=== PATIENT | male | born 1980 | race Caucasian/White ===

== ENCOUNTER 2018-12-19 11:22 | Emergency (ER) | payer OTHER, SELFPAY ==
[2018-12-19 11:29] VITALS: BP 132/85; PULSE 102; RESP 18; TEMP 36.9; O2SAT 97
--- NOTE | 2018-12-19 11:54 | DI.US.S_ITS ---
PROCEDURE: US PERIPH VENOUS LOW EXTREM RT INDICATIONS: LEFT KNEE PAIN 1 WEEK POST OP TECHNIQUE: Real-time imaging, as well as color and pulse Doppler interrogation, were performed of the lower extremity deep veins from the inguinal ligament to the popliteal fossa. COMPARISON: None. FINDINGS: The common femoral, femoral and popliteal veins are normally compressible, and free of intraluminal thrombus. Color and pulse Doppler demonstrate normal phasic intraluminal flow. There is normal augmentation response to distal compression maneuver. IMPRESSION: Negative for deep venous thrombosis. Dictated by: Panchito Lakhani M.D. on 12/19/2018 at 11:32 Approved by: Panchito Lakhani M.D. on 12/19/2018 at 11:33
--- NOTE | 2018-12-19 13:32 | ED.LOWEXIN ---
HPI - Extremity Injury (Lower) <CALE Woodward - Last Filed: 12/19/18 23:59> General Chief Complaint: Extremity Injury, Lower Stated Complaint: Surgery last tuesday,right calf pain Time Seen by Provider: 12/19/18 13:04 Source: patient and family Mode of arrival: ambulatory Limitations: no limitations History of Present Illness HPI Narrative: 38-year-old male with a past medical history of traumatic brain injury, GERD, hypertension, and sleep apnea, presents to the emergency department after a laparoscopic exploration right knee surgery on 12/13/2018 complaining of calf pain for the past 3 days that is worse today. Pain is crampy in nature, 10/10, intermittent, worse with movement, stretching, and weight bearing; Pain is better with rest. Denies increased swelling, redness, numbness, joint pain, decreased sensation, nausea, vomiting, fevers, chills, chest pain, shortness of breath. Related Data Previous Rx's Medication Instructions Recorded hydroxyzine HCl 50 mg PO Q6H #20 tab 12/19/18 oxycodone-acetaminophen [Percocet] 1 tab PO Q4-6H PRN #10 tab 12/19/18 Allergies Allergy/AdvReac Type Severity Reaction Status Date / Time No Known Drug Allergies Allergy Verified 12/19/18 11:29 Review of Systems <CALE Woodward - Last Filed: 12/19/18 23:59> Constitutional Denies chills, Denies fever(s), Denies lethargy and Denies weakness ENT Ears, Nose, Mouth, and Throat: Denies change in voice and Denies sore throat Cardiovascular Denies chest pain, Denies irregular heart rhythm, Denies lightheadedness, Denies palpitations, Denies dyspnea, Denies dyspnea on exertion and Denies orthopnea Respiratory Denies cough, Denies dyspnea, Denies dyspnea on exertion and Denies wheezing Gastrointestinal Gastrointestinal: Denies abdominal pain, Denies change in bowel habits, Denies diarrhea, Denies nausea and Denies vomiting Genitourinary Denies hematuria, Denies flank pain, Denies urinary incontinence and Denies urinary urgency Musculoskeletal Reports muscle cramps, Denies stiffness and Denies tingling Integumentary/Breasts Denies pruritus, Denies erythema, Denies rash and Denies wounds Neurologic Denies confusion, Denies tingling and Denies weakness Psychiatric Denies anxiety, Denies confusion, Denies depression, Denies homicidal ideation and Denies suicidal ideation Endocrine Denies palpitations Hematologic/Lymphatic Denies easy bruising Allergic/Immunologic Denies wheezing PFSH <CALE Woodward - Last Filed: 12/19/18 23:59> Surgical History H/O right knee surgery (Acute) Social History Smoking Status: Never smoker Social History Smoking Status: Never smoker Exam <CALE Woodward - Last Filed: 12/19/18 23:59> Initial Vital Signs Initial Vital Signs: Vital Signs Temperature 98.4 F 12/19/18 11:29 Pulse Rate 102 H 12/19/18 11:29 Respiratory Rate 18 12/19/18 11:29 Blood Pressure 132/85 12/19/18 11:29 Pulse Oximetry 97 12/19/18 11:29 Const General: cooperative and well developed Nutritional Appearance: well nourished Orientation: alert, awake, oriented x3 and not confused Eyes General: appearance normal, both eyes and all related structures Eyelids: eyelids normal Conjunctivae: conjunctivae normal Sclera: sclerae normal Pupils: PERRL EOM: EOM intact bilaterally Neck Neck: normal visual inspection, trachea midline, No lymphadenopathy, No midline deformity and No JVD Lymphatic: No lymphedema Chest Chest: normal inspection of the chest Resp Effort & Inspection: normal respiratory effort, able to speak in complete sentences, no respiratory distress and no use of accessory muscles Auscultation: clear to auscultation bilaterally, no rales, no rhonchi and no wheezes Cardio Rate: regular rate Rhythm: regular rhythm Heart Sounds: no click, no gallops, no murmurs and no rubs Pulses: normal peripheral pulses GI Palpation: soft, No guarding and No tender Skin General: no rashes or lesions noted, No jaundice and No petechiae Neuro General: alert, oriented x3, gait normal and no focal motor deficits Speech: speech normal Extrem General: full ROM Right lower extremity: normal to inspection, full ROM and normal capillary refill Other: 1+ nonpitting edema in the right lower extremity, with calf tenderness on palpation and with movement as such. Full range of motion of foot, ankle, pressure range of motion with stability to pain post surgery. Pedal pulses 2+ bilaterally, color equal bilaterally. No erythema or induration. Psych Appearance: well kempt Mental Status: mental status grossly normal Attitude: cooperative Thought Content: normal and suicidality Judgment: judgment good <Sue Storey MD - Last Filed: 12/21/18 12:10> Initial Vital Signs Initial Vital Signs: Vital Signs Temperature 98.4 F 12/19/18 11:29 Pulse Rate 102 H 12/19/18 11:29 Respiratory Rate 18 12/19/18 11:29 Blood Pressure 132/85 12/19/18 11:29 Pulse Oximetry 97 12/19/18 11:29 Course <CALE Woodward - Last Filed: 12/19/18 23:59> Course Narrative: Patient given Jose R wrap to reduce swelling in legs. Orders Ordered: ED Orders 12/19/18 11:54 US periph venous low extrem rt Stat Consultations Consultation #1: Staffed patient with Dr. Storey who agrees with plan of care. Vital Signs - 8 hr 12/19/18 11:29 Temperature 98.4 F Pulse Rate 102 H Respiratory Rate 18 Blood Pressure 132/85 Pulse Oximetry 97 <Sue Storey MD - Last Filed: 12/21/18 12:10> Orders Ordered: ED Orders 12/19/18 11:54 US periph venous low extrem rt Stat Vital Signs - 8 hr 12/19/18 11:29 Temperature 98.4 F Pulse Rate 102 H Respiratory Rate 18 Blood Pressure 132/85 Pulse Oximetry 97 MDM - Extremity Injury (Lower) <CALE Woodward - Last Filed: 12/19/18 23:59> Medical Records Attestation: I reviewed the patient's medical records. Lab Data Attestation: I reviewed the patient's lab results. Imaging Data Venous US: Radiologist's impression: ROSARIO Dee [id number] Ultrasound Report Signed Patient: Yusuf Martinez Jr [facility]#: [id number] : 1980Acct:[id number] Age/Sex: 38 / MDate of Service: 12/19/18 Loc: ED Accession Number: [id number] Procedure: US periph venous low extrem rt Ordering Provider: Sue Storey MD PROCEDURE: US PERIPH VENOUS LOW EXTREM RT INDICATIONS: LEFT KNEE PAIN 1 WEEK POST OP TECHNIQUE: Real-time imaging, as well as color and pulse Doppler interrogation, were performed of the lower extremity deep veins from the inguinal ligament to the popliteal fossa. COMPARISON: None. FINDINGS: The common femoral, femoral and popliteal veins are normally compressible, and free of intraluminal thrombus. Color and pulse Doppler demonstrate normal phasic intraluminal flow. There is normal augmentation response to distal compression maneuver. IMPRESSION: Negative for deep venous thrombosis. Dictated by: Panchito Lakhani M.D. on 12/19/2018 at 11:32 Approved by: Panchito Lakhani M.D. on 12/19/2018 at 11:33 [facility] Narrative Medical decision making narrative: I suspect the patient's symptoms are caused by muscle spasm related knee surgery. Low suspicion for DVT as ultrasound did not show acute findings, exam was negative. Low suspicion for septic joint due to negative exam and the lack of other systemic findings. Strict return precautions given. Hydroxyzine given to his muscle spasms, pain medication given for comfort. Discussed follow-up instructions with patient. Discharge Plan Departure Patient Disposition: Home Clinical Impression: Pain of right calf Discharge Date/Time: 12/19/18 13:44 Interventions: ED Discharge Assessment Last Done: 12/19/18 13:43 Instructions: DI for Deep Vein Thrombosis, DI for Muscle Spasm Activity Restrictions/Additional Instructions: Thank you for entrusting me with your care today. As discussed your ultrasound was negative for blood clots, I believe your pain is caused from a muscle spasm. I prescribed do a medication to help with the muscle spasms as well as some pain medication. Use heat, gentle stretches, and gentle exercises to reduce the spasms. Please follow up with their surgeon as directed. I have also attached information concerning blood clots, if you develop increased redness, a hard induration, or discoloration of the limb please return to the emergency department. Please do not drive with these medications. Prescriptions: New hydroxyzine HCl 50 mg tablet 50 mg PO Q6H Qty: 20 RF: 0 oxycodone-acetaminophen [Percocet] 5-325 mg tablet 1 tab PO Q4-6H PRN (Reason: pain) Qty: 10 RF: 0
[2018-12-19 13:35] VITALS: BP 120/68; PULSE 83; RESP 14; O2SAT 98
--- NOTE | 2018-12-19 13:35 | ED_ITS ---
HPI - Extremity Injury (Lower) <CALE Woodward - Last Filed: 12/19/18 23:59> General Chief Complaint: Extremity Injury, Lower Stated Complaint: Surgery last tuesday,right calf pain Time Seen by Provider: 12/19/18 13:04 Source: patient and family Mode of arrival: ambulatory Limitations: no limitations History of Present Illness HPI Narrative: 38-year-old male with a past medical history of traumatic brain injury, GERD, hypertension, and sleep apnea, presents to the emergency department after a laparoscopic exploration right knee surgery on 12/13/2018 complaining of calf pain for the past 3 days that is worse today. Pain is crampy in nature, 10/10, intermittent, worse with movement, stretching, and weight bearing; Pain is better with rest. Denies increased swelling, redness, n umbness, joint pain, decreased sensation, nausea, vomiting, fevers, chills, chest pain, shortness of breath. Related Data Previous Rx's Medication Instructions Recorded hydroxyzine HCl 50 mg PO Q6H #20 tab 12/19/18 oxycodone-acetaminophen [Percocet] 1 tab PO Q4-6H PRN #10 tab 12/19/18 Allergies Allergy/AdvReac Type Severity Reaction Status Date / Time No Known Drug Allergies Allergy Verified 12/19/18 11:29 Review of Systems <CALE Woodward - Last Filed: 12/19/18 23:59> Constitutional Denies chills, Denies fever(s), Denies lethargy and Denies weakness ENT Ears, Nose, Mouth, and Throat: Denies change in voice and Denies sore throat Cardiovascular Denies chest pain, Denies irregular heart rhythm, Denies lightheadedness, Denies palpitations, Denies dyspnea, Denies dyspnea on exertion and Denies orthopnea Respiratory Denies cough, Denies dyspnea, Denies dyspnea on exertion and Denies wheezing Gastrointestinal Gastrointestinal: Denies abdominal pain, Denies change in bowel habits, Denies diarrhea, Denies nausea and Denies vomiting Genitourinary Denies hematuria, Denies flank pain, Denies urinary incontinence and Denies urinary urgency Musculoskeletal Reports muscle cramps, Denies stiffness and Denies tingling Integumentary/Breasts Denies pruritus, Denies erythema, Denies rash and Denies wounds Neurologic Denies confusion, Denies tingling and Denies weakness Psychiatric Denies anxiety, Denies confusion, Denies depression, Denies homicidal ideation and Denies suicidal ideation Endocrine Denies palpitations Hematologic/Lymphatic Denies easy bruising Allergic/Immunologic Denies wheezing PFSH <CALE Woodward - Last Filed: 12/19/18 23:59> Surgical History H/O right knee surgery (Acute) Social History Smoking Status: Never smoker Social History Smoking Status: Never smoker Exam <CALE Woodward - Last Filed: 12/19/18 23:59> Initial Vital Signs Initial Vital Signs: Vital Signs Temperature 98.4 F 12/19/18 11:29 Pulse Rate 102 H 12/19/18 11:29 Respiratory Rate 18 12/19/18 11:29 Blood Pressure 132/85 12/19/18 11:29 Pulse Oximetry 97 12/19/18 11:29 Const General: cooperative and well developed Nutritional Appearance: well nourished Orientation: alert, awake, oriented x3 and not confused Eyes General: appearance normal, both eyes and all related structures Eyelids: eyelids normal Conjunctivae: conjunctivae normal Sclera: sclerae normal Pupils: PERRL EOM: EOM intact bilaterally Neck Neck: normal visual inspection, trachea midline, No lymphadenopathy, No midline deformity and No JVD Lymphatic: No lymphedema Chest Chest: normal inspection of the chest Resp Effort & Inspection: normal respiratory effort, able to speak in complete sentences, no respiratory distress and no use of accessory muscles Auscultation: clear to auscultation bilaterally, no rales, no rhonchi and no wheezes Cardio Rate: regular rate Rhythm: regular rhythm Heart Sounds: no click, no gallops, no murmurs and no rubs Pulses: normal peripheral pulses GI Palpation: soft, No guarding and No tender Skin General: no rashes or lesions noted, No jaundice and No petechiae Neuro General: alert, oriented x3, gait normal and no focal motor deficits Speech: speech normal Extrem General: full ROM Right lower extremity: normal to inspection, full ROM and normal capillary refill Other: 1+ nonpitting edema in the right lower extremity, with calf tenderness on palpation and with movement as such. Full range of motion of foot, ankle, pressure range of motion with stability to pain post surgery. Pedal pulses 2+ bilaterally, color equal bilaterally. No erythema or induration. Psych Appearance: well kempt Mental Status: mental status grossly normal Attitude: cooperative Thought Content: normal and suicidality Judgment: judgment good <Sue Storey MD - Last Filed: 12/21/18 12:10> Initial Vital Signs Initial Vital Signs: Vital Signs Temperature 98.4 F 12/19/18 11:29 Pulse Rate 102 H 12/19/18 11:29 Respiratory Rate 18 12/19/18 11:29 Blood Pressure 132/85 12/19/18 11:29 Pulse Oximetry 97 12/19/18 11:29 Course <CALE Woodward - Last Filed: 12/19/18 23:59> Course Narrative: Patient given Jose R wrap to reduce swelling in legs. Orders Ordered: ED Orders 12/19/18 11:54 US periph venous low extrem rt Stat Consultations Consultation #1: Staffed patient with Dr. Storey who agrees with plan of care. Vital Signs - 8 hr 12/19/18 11:29 Temperature 98.4 F Pulse Rate 102 H Respiratory Rate 18 Blood Pressure 132/85 Pulse Oximetry 97 <Sue Storey MD - Last Filed: 12/21/18 12:10> Orders Ordered: ED Orders 12/19/18 11:54 US periph venous low extrem rt Stat Vital Signs - 8 hr 12/19/18 11:29 Temperature 98.4 F Pulse Rate 102 H Respiratory Rate 18 Blood Pressure 132/85 Pulse Oximetry 97 MDM - Extremity Injury (Lower) <CALE Woodward - Last Filed: 12/19/18 23:59> Medical Records Attestation: I reviewed the patient's medical records. Lab Data Attestation: I reviewed the patient's lab results. Imaging Data Venous US: Radiologist's impression: ROSARIO Dee [id number] Ultrasound Report Signed Patient: Yusuf Martinez Jr [facility]#: [id number] : 1980Acct:[id number] Age/Sex: 38 / MDate of Service: 12/19/18 Loc: ED Accession Number: [id number] Procedure: US periph venous low extrem rt Ordering Provider: Sue Storey MD PROCEDURE: US PERIP VENOUS LOW EXTREM RT INDICATIONS: LEFT KNEE PAIN 1 WEEK POST OP TECHNIQUE: Real-time imaging, as well as color and pulse Doppler interrogation, were performed of the lower extremity deep veins from the inguinal ligament to the popliteal fossa. COMPARISON: None. FINDINGS: The common femoral, femoral and popliteal veins are normally compressible, and free of intraluminal thrombus. Color and pulse Doppler demonstrate normal phasic intraluminal flow. There is normal augmentation response to distal compression maneuver. IMPRESSION: Negative for deep venous thrombosis. Dictated by: Panchito Lakhani M.D. on 12/19/2018 at 11:32 Approved by: Panchito Lakhani M.D. on 12/19/2018 at 11:33 [facility] Narrative Medical decision making narrative: I suspect the patient's symptoms are caused by muscle spasm related knee surgery. Low suspicion for DVT as ultrasound did not show acute findings, exam was negative. Low suspicion for septic joint due to negative exam and the lack of other systemic findings. Strict return precautions given. Hydroxyzine given to his muscle spasms, pain medication given for comfort. Discussed follow-up instructions with patient. Discharge Plan Departure Patient Disposition: Home Clinical Impression: Pain of right calf Discharge Date/Time: 12/19/18 13:44 Interventions: ED Discharge Assessment Last Done: 12/19/18 13:43 Instructions: DI for Deep Vein Thrombosis, DI for Muscle Spasm Activity Restrictions/Additional Instructions: Thank you for entrusting me with your care today. As discussed your ultrasound was negative for blood clots, I believe your pain is caused from a muscle spasm. I prescribed do a medication to help with the muscle spasms as well as some pain medication. Use heat, gentle stretches, and gentle exercises to reduce the spasms. Please follow up with their surgeon as directed. I have also attached information concerning blood clots, if you develop increased redness, a hard induration, or discoloration of the limb please return to the emergency department. Please do not drive with these medications. Prescriptions: New hydroxyzine HCl 50 mg tablet 50 mg PO Q6H Qty: 20 RF: 0 oxycodone-acetaminophen [Percocet] 5-325 mg tablet 1 tab PO Q4-6H PRN (Reason: pain) Qty: 10 RF: 0
== END 2018-12-19 13:44 | disposition home or self-care (01) ==
PROVIDERS: Emergency Provider Nurse Practitioner
DX: M79.661 Pain in right lower leg (principal); Z98.890 Other specified postprocedural states
CPT/HCPCS: 93971; 99282; 99283

== ENCOUNTER 2019-04-03 14:34 | Emergency (ER) | payer OTHER, SELFPAY ==
[2019-04-03 14:37] VITALS: BP 123/81; PULSE 90; RESP 16; TEMP 36.9; O2SAT 97
--- NOTE | 2019-04-03 15:00 | PC.NURSE ---
Pt reports twisting motion of R knee and pain. Multiple procedures done to R knee in the past. [facility] advised [facility] come [facility]. took percocets he had at home which helped but he now has no more.
--- NOTE | 2019-04-03 15:06 | ED.LOWEXIN ---
HPI - Extremity Injury (Lower) <DARLENE EllisP - Last Filed: 04/04/19 01:34> General Chief Complaint: Extremity Injury, Upper Stated Complaint: r knee pain Time Seen by Provider: 04/03/19 14:53 Source: patient Mode of arrival: other (using crutches) Limitations: no limitations History of Present Illness HPI Narrative: This is a 39-year-old male, nonsmoker, presents with family with chief complain of right knee pain. He states pain is all over but more so on anterior superior to patella. Patient reports he had injured right knee 9 years ago and had recently arthroscopic surgery in November this year. Patient reports he almost fell last night on a stairs to steps above the ground after left heel got caught on a step. He is not sure what the mechanism was during this but he might have twisted his right knee during this. Patient reports any little movement and bearing weight cause excruciating pain. He denies tingling/numbness/weakness to right foot. He reports occasional right calf discomfort which is not a change from previously. He denies no other injuries sustained during this. Related Data Previous Rx's Medication Instructions Recorded hydroxyzine HCl 50 mg PO Q6H #20 tab 12/19/18 oxycodone-acetaminophen [Percocet] 1 tab PO Q4-6H PRN #10 tab 12/19/18 oxycodone-acetaminophen [Percocet] 1 tab PO Q6H PRN #7 tab 04/03/19 Allergies Allergy/AdvReac Type Severity Reaction Status Date / Time No Known Drug Allergies Allergy Verified 12/19/18 11:29 Review of Systems <DARLENE EllisP - Last Filed: 04/04/19 01:34> Review of Systems Narrative: General: Denies fever, chills, fatigue, malaise, sweats. HEENT: Denies sinus pain, ear pain, sore throat, difficulty swallowing, dizziness. Respiratory: Denies dyspnea, cough, wheezing, hemoptysis, sputum. Cardiovascular: Denies chest pain, palpitations, orthopnea, edema. Gastrointestinal: Denies nausea, vomiting, abdominal pain, diarrhea, constipation, melena. : Denies dysuria, frequency, incontinence, hematuria, urinary retention. Musculoskeletal: See HPI Skin: Denies rash, skin lesions, or other. Neurologic: Denies weakness, headache, numbness, change in speech, confusion, seizures, incoordination. Psychiatric: No concerning psychosocial issues. 12-point review of systems is negative except for those stated above. PFSH <CALE Ellis - Last Filed: 04/04/19 01:34> Medical History Knee pain (Acute) Surgical History H/O right knee surgery (Acute) Social History Smoking Status: Never smoker Social History Smoking Status: Never smoker Exam <CALE Ellis - Last Filed: 04/04/19 01:34> Narrative Exam Narrative: GEN: Alert, oriented x 3, well appearing and nourished, and in no acute distress. Head: Normal cephalic, atraumatic. No scalp or temporal tenderness, palpable mass or rash. EYES: Pupils are equal, round, and reactive to light and accommodation. Extraocular muscles are intact bilaterally. There is no subconjunctival hemorrhage, exudate and sclera non-icteric. ENT: Bilateral auditory canals and tympanic membranes clear. Hearing grossly intact. Nose without bleeding, purulent discharge or deviation. Facial sinuses nontender to palpate. Mucous membrane moist, no mucosal lesion. Throat without erythema, tonsillar hypertrophy or exudate. Uvula in midline, airway patent. Neck: Trachea in midline. No JVD, non-tender without lymphadenopathy. No masses or thyroid megaly. Supple, non-tender and no meningeal signs. CARDIAC: Normal regular rate and rhythm without murmurs, gallops, or rubs. No chest wall tenderness. No peripheral edema, cyanosis or pallor. Capillary refill is less than 2 seconds. RESPIRATORY: Lungs are cleat to auscultate bilaterally. No cough, wheezes, rales, or rhonchi. No stridor, respiratory distress, increase work of breathing, or accessary muscle used. ABD: Abdomen soft, nontender and non-distended. No guarding or rebound tenderness to palpate. Bowel sounds are normal in all 4 quadrants. There is no palpable masses or organomegaly. SKIN: Warm, dry, normal color for patient. No erythema, lesions or rash over visible areas. BACK: Nontender without deformity or crepitance. No flank tenderness. NEUROLOGICAL: Alert and oriented to place, time and person. Sensation and motor function intact bilaterally. No facial droops, dysphasia. PSYCHIATRIC: Good judgement and reason, without hallucinations, abnormal affect or abnormal behaviors during the examination. Patient is not suicidal. Initial Vital Signs Initial Vital Signs: Vital Signs Temperature 98.4 F 04/03/19 14:37 Pulse Rate 90 04/03/19 14:37 Respiratory Rate 16 04/03/19 14:37 Blood Pressure 123/81 04/03/19 14:37 Pulse Oximetry 97 04/03/19 14:37 Extrem Right upper extremity: normal to inspection and full ROM Left upper extremity: normal to inspection and full ROM Right lower extremity: knee Details: normal to inspection, tenderness and abnormal ROM Details: pain with active ROM during, pain with passive ROM during, unable to extend lower leg actively and with range as follows (very limited due to pain); no swelling, ankle Details: normal to inspection and normal ROM and foot Details: normal capillary refill, normal to inspection, toes with normal ROM, no edema and vascular exam Details: dorsalis pedis pulse present; no unusual warmth Left lower extremity: normal to inspection, full ROM and normal capillary refill <Naveed Ledezma DO - Last Filed: 04/11/19 19:13> Initial Vital Signs Initial Vital Signs: Vital Signs Temperature 98.4 F 04/03/19 14:37 Pulse Rate 90 04/03/19 14:37 Respiratory Rate 16 04/03/19 14:37 Blood Pressure 123/81 04/03/19 14:37 Pulse Oximetry 97 04/03/19 14:37 Procedures <CALE Ellis Last Filed: 04/04/19 01:34> Orthopedic Splinting/Casting Injury #1: Side: right Upper Extremity Immobilizer: Jose R wrap Lower Extremity Injury Location: knee Post splinting neuro exam: intact Post splinting vascular exam: intact Placed by: Nursing Additional Comments: The patient has own crutches Course <CALE Ellis Last Filed: 04/04/19 01:34> Orders Ordered: Discontinued Medications Hydrocodone Bitart/Acetaminophen ([place] 5/325) 1 tab PO NOW ONE Stop: 04/03/19 15:06 Last Admin: 04/03/19 15:35 Dose: 1 tab Documented by: BARBARA Ibuprofen (Advil) 800 mg PO NOW ONE Stop: 04/03/19 15:06 Last Admin: 04/03/19 15:35 Dose: 800 mg Documented by: BARBARA Vital Signs Vital signs: Vital Signs - 8 hr 04/03/19 14:37 Temperature 98.4 F Pulse Rate 90 Respiratory Rate 16 Blood Pressure 123/81 Pulse Oximetry 97 <Naveed Ledezma DO - Last Filed: 04/11/19 19:13> Orders Ordered: Discontinued Medications Hydrocodone Bitart/Acetaminophen ([place] 5/325) 1 tab PO NOW ONE Stop: 04/03/19 15:06 Last Admin: 04/03/19 15:35 Dose: 1 tab Documented by: BARBARA Ibuprofen (Advil) 800 mg PO NOW ONE Stop: 04/03/19 15:06 Last Admin: 04/03/19 15:35 Dose: 800 mg Documented by: BARBARA Vital Signs Vital signs: Vital Signs - 8 hr 04/03/19 14:37 Temperature 98.4 F Pulse Rate 90 Respiratory Rate 16 Blood Pressure 123/81 Pulse Oximetry 97 MDM - Extremity Injury (Lower) <CALE Ellis - Last Filed: 04/04/19 01:34> Differential Diagnosis Differential diagnosis: Likely ankle sprain and strain and acute internal derangement of knee Medical Records Attestation: I reviewed the patient's medical records. Imaging Data XR-Knee RT: Radiologist's impression: [address] [address] XRay Report Signed Patient: Yusuf Martinez Jr [facility]#: [id number] : 1980Acct:[id number] Age/Sex: 39 / MDate of Service: 04/03/19 Loc: ED Accession Number: [id number] Procedure: XR knee RT 3V Ordering Provider: Andreas Schwartz PROCEDURE: XR KNEE RT 3V INDICATIONS: R knee pain, anterior all over TECHNIQUE: 3 views of the knee were acquired. COMPARISON: None. FINDINGS: Bones: No fractures or dislocations. No suspicious bony lesions. Soft tissues: No joint effusion. No suspicious soft tissue calcifications. IMPRESSION: Normal for age, source of current persistent pain persistent pain symptoms is not seen. Dictated by: Moustapha Lee M.D. on 04/03/2019 at 15:37 Approved by: Moustapha Lee M.D. on 04/03/2019 at 15:37 [facility] Narrative Medical decision making narrative: This patient came in with right knee pain after he jumped down to staff on a stairs try to avoid fall last night. Patient was unable to recall the exact mechanism of injury. Patient had arthroscopic right knee surgery this November at [facility] from previous injury 9 years ago. Patient's physical exam without obvious deformity, edema, redness. Patient reports significant pain with small movements including flexion, extension, anterior and posterior drawer test. Patient had intact neurovascular function. Right knee x-ray shows no acute findings such as fracture, deformity, effusion. Patient's was medicated with [place] in ED for pain. Knee immobilizer was offered to patient but patient prefers Jose R wrap at this time. Patient has his own set of crutches when he came in to ED. Return precautions were discussed with the patient and patient advised to follow up with [facility] orthopedist and his primary care physician. Pain medication has been provided for home use for severe pain otherwise patient advised to use [id number] Tylenol and or Motrin and RICE therapy for pain, swelling, inflammation. Patient agrees with treatment plan and no further questions were expressed. Copy of x-ray CT provided for patient to follow up with [facility]. Discharge Plan Departure Patient Disposition: Home Clinical Impression: Sprain of right knee Qualifiers: Encounter type: initial encounter Involved ligament of knee: unspecified ligament Qualified Code(s): S83.91XA - Sprain of unspecified site of right knee, initial encounter Discharge Date/Time: 04/03/19 16:16 Instructions: DI for Knee Sprain Activity Restrictions/Additional Instructions: You have been diagnosed with [knee sprain and pain. According to x-ray test, there is no acute findings such as dislocation, or joint effusion.]. What to do: *Take your medications as directed. You can take [id number] Tylenol and or Motrin as needed for pain and inflammation. You can also use ice pack for next couple of days and elevate your knee. Use Jose R wrap that has been provided at your request instead of knee immobilizer for splinting effect. Oxycodone/Tylenol may cause drowsiness so please to not drink alcohol, drive, or operate any heavy equipment. *Follow up with your primary care provider and orthopedist at the [facility] in 2-3 days, call for an appointment. Let them know you were seen in the ED and that we asked you to be seen in follow up. *Return to ED if you have any new, worsening, or concerning symptoms, such as [tingling numbness or weakness to lower limb, severe pain, chest pain, breathing difficulty, dizziness, or any acute concerns]. Prescriptions: New oxycodone-acetaminophen [Percocet] 5-325 mg tablet 1 tab PO Q6H PRN (Reason: pain) Qty: 7 RF: 0 No Action hydroxyzine HCl 50 mg tablet 50 mg PO Q6H Qty: 20 RF: 0 oxycodone-acetaminophen [Percocet] 5-325 mg tablet 1 tab PO Q4-6H PRN (Reason: pain) Qty: 10 RF: 0 Referrals: [facility] ([facility] [Outside] <Naveed Ledezma DO - Last Filed: 04/11/19 19:13> Sign Out Provider Sign Out Attestation: I was available for consultation during this patient's emergency department encounter
[2019-04-03] MEDS: HYDROCODONE/ACET 5/325 TABLET 1 TAB PO (15:35)
[2019-04-03] MEDS: IBUPROFEN 400 MG TABLET 800 MG PO (15:35)
[2019-04-03 16:09] VITALS: BP 141/85; PULSE 90; RESP 18; O2SAT 100
== END 2019-04-03 16:16 | disposition home or self-care (01) ==
PROVIDERS: Emergency Provider Nurse Practitioner Family
DX: S83.91XA Sprain of unspecified site of right knee, initial encounter (principal); W18.43XA Slipping, tripping and stumbling without falling due to stepping from one level to another, initial encounter
CPT/HCPCS: 73562; 99282; 99283

== ENCOUNTER → 2019-06-07 16:43 | Outpatient (CLI) | payer OTHER, SELFPAY ==
--- NOTE | 2019-06-07 | DI.MRI.S_ITS ---
PROCEDURE: MR LUMBAR SPINE WO CON INDICATIONS: LOW BACK PAIN. LEFT THIGH TECHNIQUE: Noncontrast sagittal T1 spin echo and T2 fast echo, sagittal STIR, axial T1 and T2 fast spin echo through the lumbar spine. In cases with scoliosis, additional coronal T2 fast spin echo may be performed. COMPARISON: None. FINDINGS: Image quality: Excellent. Alignment and Curvature: There is normal bony alignment. Bone Marrow: Marrow is of normal overall signal. No acute vertebral body compression fractures. Spinal Cord: Conus medullaris terminates at the L1 level. Visualized cord demonstrates normal signal and size. Paraspinous Soft Tissues: No paravertebral masses. L1-L2: Normal appearance. L2-L3: Normal appearance. L3-L4: Normal appearance. L4-L5: Normal appearance. L5-S1: Loss of disc signal and height. Mild, diffuse disc bulge. Moderate-sized right central disc extrusion. Extruded disc material impinges upon and compresses the traversing right S1 nerve root. The no central stenosis. Mild bilateral neural foraminal narrowing. IMPRESSION: 1. Moderate-sized L5-S1 right central disc extrusion which compresses the right S1 nerve root. 2. Mild L5-S1 degenerative disc disease. 3. No central stenosis. 4. Mild bilateral L5-S1 neural foraminal narrowing. Dictated by: Cecile Gregory MD, PhD on 06/07/2019 at 19:14 Approved by: Cecile Gregory MD, PhD on 06/07/2019 at 19:16
== END ==
PROVIDERS: Visit Provider Physical Medicine & Rehabilitation
DX: M51.27 Other intervertebral disc displacement, lumbosacral region (principal); M51.37 Other intervertebral disc degeneration, lumbosacral region; M48.07 Spinal stenosis, lumbosacral region
CPT/HCPCS: 72148

== ENCOUNTER 2019-08-31 17:13 | Emergency (ER) | payer OTHER, SELFPAY ==
[2019-08-31 17:33] VITALS: BP 124/72; PULSE 111; RESP 18; TEMP 36.8; O2SAT 96
[2019-08-31] MEDS: OXYCODONE/ACETAMINOPHEN 5/325 TABLET 1 TAB PO (19:57)
--- NOTE | 2019-08-31 20:07 | ED_ITS ---
HPI - Male Genitourinary <Andreas BellaCALE Barrios - Last Filed: 08/31/19 23:47> General Chief complaint: Urogenital-Male Stated complaint: post surgery today, left hand tingling now Time Seen by Provider: 08/31/19 19:31 Source: patient Mode of arrival: Ambulatory Limitations: no limitations History of Present Illness HPI Narrative: This is a 39-year-old male, nonsmoker, who presents to ED with spouse and son with chief complain of numbness to his left 1st through 3rd fingers that he noticed at PACU stay. Patient had vasectomy reversal surgery today by [facility] today. Patient was under general anesthesia which the surgery was started at 7:30 a.m. till 11 and discharged to home at 1:00 a.m. from the hospital today. Patient called nurse line to discuss his symptoms on finger numbness, he was advised to go to ED immediately. Patient also states he has increasing bleeding and discomfort on surgical site and had not taken any pain medications since he was discharged to home. Patient reports frontal headache but denies vision change, speech difficulty or limb weakness. Patient has a history of frequent and severe kidney stones, , ADD , PTSD and NGA and takes HCTZ, allopurinol, potassium citrate for kidney stone and has been managed well. Related Data Allergies Allergy/AdvReac Type Severity Reaction Status Date / Time No Known Drug Allergies Allergy Verified 12/19/18 11:29 Review of Systems <Andreas RosetteCALE smith - Last Filed: 08/31/19 23:47> Review of Systems Narrative: General: Denies fever, chills, fatigue, malaise, sweats. HEENT: Denies sinus pain, ear pain, sore throat, difficulty swallowing, dizziness. Respiratory: Denies dyspnea, cough, wheezing, hemoptysis, sputum. Cardiovascular: Denies chest pain, palpitations, orthopnea, edema. Gastrointestinal: Denies nausea, vomiting, abdominal pain, diarrhea, constipation, melena. : Reports discomfort in scrotal/tescicular region and bleeding. Denies dysuria, frequency, incontinence, hematuria, urinary retention. Musculoskeletal: Denies weakness, joint pain or bony pain. Skin: Denies rash, skin lesions, or other. Neurologic: Denies weakness, (+) headache, (+) numbness on left hand 1st through 3rd fingers radiating to lower arm, change in speech, confusion, seizures, incoordination. Psychiatric: No concerning psychosocial issues. 12-point review of systems is negative except for those stated above. Patient History <CALE Ellis - Last Filed: 08/31/19 23:47> Medical History ADD (attention deficit disorder) (Acute) GERD (gastroesophageal reflux disease) (Acute) Kidney stones (Acute) Knee pain (Acute) NGA (obstructive sleep apnea) (Acute) PTSD (post-traumatic stress disorder) (Acute) Surgical History H/O right knee surgery (Acute) H/O shoulder surgery (Acute) Social History Smoking Status: Never smoker Smoking Status: Never smoker alcohol intake frequency: holidays/special occasions only Substance Use Type: does not use Exam <CALE Ellis - Last Filed: 08/31/19 23:47> Narrative Exam Narrative: GEN: Alert, oriented x 3, well appearing and nourished, and in acute distress but anxious. Head: Normal cephalic, atraumatic. No scalp or temporal tenderness, palpable mass or rash. EYES: Pupils are equal, round, and reactive to light and accommodation. Extraocular muscles are intact bilaterally. There is no subconjunctival hemorrhage, exudate and sclera non-icteric. ENT: Bilateral auditory canals and tympanic membranes clear. Hearing grossly intact. Nose without bleeding, purulent discharge, septal hematoma or deviation. Turbinate without erythema or swelling. Facial sinuses nontender to palpate. Mucous membrane moist, no mucosal lesion. Throat without erythema, tonsillar hypertrophy or exudate. Uvula in midline, airway patent. Neck: Trachea in midline. No JVD, non-tender without lymphadenopathy. No masses or thyroid megaly. Supple, non-tender and no meningeal signs. CARDIAC: Normal regular rate and rhythm without murmurs, gallops, or rubs. No chest wall tenderness. No peripheral edema, cyanosis or pallor. Capillary refill is less than 2 seconds. No carotid bruits. RESPIRATORY: Lungs are cleat to auscultate bilaterally. No cough, wheezes, rales, or rhonchi. No stridor, respiratory distress, increase work of breathing, or accessary muscle used. ABD: Abdomen soft, nontender and non-distended. No guarding or rebound tenderness to palpate. Bowel sounds are normal in all 4 quadrants. There is no palpable masses or organomegaly. EXT: Full painless ROM of all extremities with no loss of sensation, strength, effusion or edema. SKIN: Warm, dry, normal color for patient. No erythema, lesions or rash. BACK: Nontender without deformity or crepitance. No flank tenderness. NEUROLOGICAL: Alert and oriented to place, time and person. No facial droops, dysphasia. CN II-XII intact. Strength and sensation symmetric and intact throughout. Reflexes 2+ throughout. Cerebellar testing normal. Able distinguish sharp versus dull sensation accurately on left arm and hand PSYCHIATRIC: Good judgement and reason, without hallucinations, abnormal affect or abnormal behaviors during the examination. Initial Vital Signs Initial Vital Signs: Vital Signs Temperature 98.2 F 08/31/19 17:33 Pulse Rate 111 H 08/31/19 17:33 Respiratory Rate 18 08/31/19 17:33 Blood Pressure 124/72 08/31/19 17:33 Pulse Oximetry 96 08/31/19 17:33 Scrotum: scrotum normal, no ecchymosis, no hydroceles, no masses, no scrotal swelling and other (Surgical site covered with clear dressing without significant bleeding.) Testes: normal, no epidiymal masses and testicular tenderness <Yadiel Denise MD - Last Filed: 09/12/19 15:05> Initial Vital Signs Initial Vital Signs: Vital Signs Temperature 98.2 F 08/31/19 17:33 Pulse Rate 111 H 08/31/19 17:33 Respiratory Rate 18 08/31/19 17:33 Blood Pressure 124/72 08/31/19 17:33 Pulse Oximetry 96 08/31/19 17:33 Scores <CALE Ellis - Last Filed: 08/31/19 23:47> GCS Erlin coma scale eye opening: Spontaneous Erlin coma scale verbal response: Orientated [place] coma scale motor response: Obey commands Erlin coma scale total score: 15 NIH Stroke Scale Level of Conciousness: Alert, keenly responsive Ask month/age: Answers both questions correctly. Open/close eyes, close hand: Performs both tasks correctly Best gaze horizontal: Normal Visual son: No visual loss Facial palsy: Normal symetrical movement Left arm drift: No drift for full 10 sec Right arm drift: No drift for full 10 sec Left leg drift: No drift for full 10 sec Right leg drift: No drift for full 10 sec Limb ataxia: Absent Sensory on face/arms/legs: Normal, no sensory loss Best language: No aphasia, normal Dysarthria: Normal Extinction or inattention: No abnormality Total NIH Stroke scale score: 0 Course <CALE Ellis - Last Filed: 08/31/19 23:47> Orders Ordered: Discontinued Medications Oxycodone/Acetaminophen (Percocet 5/325) 1 tab PO NOW ONE Stop: 08/31/19 19:55 Last Admin: 08/31/19 19:57 Dose: 1 tab Documented by: ERICA Vital Signs Vital signs: Vital Signs - 8 hr 08/31/19 17:33 08/31/19 20:20 Temperature 98.2 F Pulse Rate 111 H 89 Respiratory Rate 18 14 Blood Pressure 124/72 123/71 Pulse Oximetry 96 99 <Yadiel Denise MD - Last Filed: 09/12/19 15:05> Orders Ordered: Discontinued Medications Oxycodone/Acetaminophen (Percocet 5/325) 1 tab PO NOW ONE Stop: 08/31/19 19:55 Last Admin: 08/31/19 19:57 Dose: 1 tab Documented by: ERICA Vital Signs Vital signs: Vital Signs - 8 hr 08/31/19 17:33 08/31/19 20:20 Temperature 98.2 F Pulse Rate 111 H 89 Respiratory Rate 18 14 Blood Pressure 124/72 123/71 Pulse Oximetry 96 99 MDM - Male Genitourinary <CALE Ellis - Last Filed: 08/31/19 23:47> Differential Diagnosis Differential diagnosis: Likely other (Postop discomfort, postop bleeding, CVA, L finger numbness) Medical Records Attestation: I reviewed the patient's medical records. MDM Narrative Medical decision making narrative: This is a 39-year-old male who had a vasectomy reversal surgery this morning and was discharged to home at 1:00 p.m. today noticed numbness to left 1st through 3rd finger numbness. Patient's neuro exam was normal and NIHSS score 0. Patient was able to distinguish sharp and dull sensation ax currently on left arm. Patient has a low risk for CVA and existing CAD, hypertension, hyperlipidemia. The patient's numbness is likely due to prolonged position that he may remained during the surgery since there is no obvious neurological deficit. Patient's surgical site was assessed without significant bleeding below the bulky dressing and jock support which has been repositioned. Patient was assured of these findings and was medicated with Percocet the patient was discharged to home from his surgery. Patient advised to continue to use ice pack on and off for next couple of days. Return precautions were discussed with the patient and patient verbalized understanding and agrees with the treatment plan. Discharge Plan Departure Patient Disposition: Home Clinical Impression: Postoperative hemorrhage from incision, Numbness of fingers Discharge Date/Time: 08/31/19 20:20 Activity Restrictions/Additional Instructions: You have been diagnosed with [numbness to her left 1st 3 digits which is likely from surgical position while you're under general anesthesia. Your neurologic assessment was grossly intact with alert and oriented x3. Postop site does not show significant bleeding.]. What to do: *Take your medications as directed. You were medicated with Percocet your postop pain medications while in ED. please continue with your medication. *Follow up with your primary care provider in 2-3 days, call for an appointment. Please follow-up with your urologist postop. Let them know you were seen in the ED and that we asked you to be seen in follow up. *Return to ED if you have any new, worsening, or concerning symptoms, such as [chest pain, breathing trouble, weakness to limb, speech difficulty, vision change, balance difficulty, severe pain, fever, or any acute concerns]. Referrals: Paul Baker ARNP [Non-Staff] -
[2019-08-31 20:20] VITALS: BP 123/71; PULSE 89; RESP 14; O2SAT 99
== END 2019-08-31 20:20 | disposition home or self-care (01) ==
PROVIDERS: Emergency Provider Nurse Practitioner Family
DX: R20.0 Anesthesia of skin (principal); N99.820 Postprocedural hemorrhage of a genitourinary system organ or structure following a genitourinary system procedure
CPT/HCPCS: 99283

== ENCOUNTER 2019-09-25 16:23 | Emergency (ER) | payer OTHER, SELFPAY ==
[2019-09-25 16:31] VITALS: BP 124/77; PULSE 98; RESP 20; O2SAT 98
--- NOTE | 2019-09-25 16:36 | DI.RAD.S_ITS ---
PROCEDURE: XR CHEST 2V INDICATIONS: irreg heart beat TECHNIQUE: 2 views of the chest were acquired. COMPARISON: None. FINDINGS: Surgical changes and devices: None. Lungs and pleura: Lungs are clear. No pleural effusions or pneumothorax. Mediastinum: Mediastinal contours are normal. Heart size is normal. Bones and chest wall: No suspicious bony abnormalities. Soft tissues appear unremarkable. IMPRESSION: Normal for age, source of current cardiac arrhythmia symptoms is not seen. Dictated by: Moustapha Lee M.D. on 09/25/2019 at 17:16 Approved by: Moustapha Lee M.D. on 09/25/2019 at 17:17
[2019-09-25 16:51] VITALS: BP 125/76; PULSE 99; RESP 14; O2SAT 100
[2019-09-25 17:00] VITALS: BP 130/78; PULSE 99; RESP 19; O2SAT 96
[2019-09-25 17:17] LABS: Add Manual Diff / Slide Review NO; Basophils Absolute Auto 100 /uL (0-100); Basophils Percent Auto 0.7 % (0-2); Eosinophils Absolute Auto 500 /uL (0-450); Eosinophils Percent Auto 5.3 % (2-4); Hematocrit 44.1 % (41-53); Hemoglobin 15.1 g/dL (13.5-17.5); Lymphocytes Absolute Auto 2200 /uL (1100-4500); Lymphocytes Percent Auto 25.5 % (25-40); Mean Corpuscular HGB Conc 34.2 % (30-36); Mean Corpuscular Hemoglobin 29.6 PG (26-34); Mean Corpuscular Volume 86.5 fL (80-100); Monocytes Absolute Auto 600 /uL (0-900); Monocytes Percent Auto 7.1 % (3-14); Neutrophils Absolute Auto 5400 /uL (1500-7000); Neutrophils Percent Auto 61.4 % (50-75); Platelet Count 313 X10^3/uL (150-400); Red Cell Distribution Width 13.4 % (11.6-14.8); White Blood Cell Count 8.7 X10^3/uL (4.5-11.0)
[2019-09-25] MEDS: SODIUM CHLORIDE 0.9% 1,000 ML 1000 ML IV (17:22)
--- NOTE | 2019-09-25 17:27 | PC.NURSE ---
pt states, with routine check up with primary, noted heart rate 250 briefly, then 120, denies any sxs. on arrival remain asymtomatic
[2019-09-25 17:30] VITALS: BP 116/72; PULSE 94; RESP 14; O2SAT 97
[2019-09-25 17:46] LABS: Magnesium 2.2 mg/dL (1.6-2.3)
[2019-09-25 17:47] LABS: Alanine Aminotransferase 15 IU/L (<50); Albumin 4.4 g/dL (3.5-5.0); Albumin Globulin Ratio 1.4 (1.0-2.8); Alkaline Phosphatase 63 U/L (38-126); Aspartate Aminotransferase 24 IU/L (17-59); BUN Creatinine Ratio 7.3 (6-22); Bilirubin Total 0.4 mg/dL (0.2-1.3); Blood Urea Nitrogen 8 mg/dL (9-20); Calcium 9.3 mg/dL (8.4-10.2); Carbon Dioxide 31 mmol/L (22-32); Chloride 102 mmol/L (98-107); Estimated Glomerular Filt Rate > 60.0 mL/min (>60); Globulin 3.2 g/dL (1.7-4.1); Glucose 108 mg/dL (70-100); HEMOLYSIS 23 (0-50); Lipase 57 U/L (23-300); Sodium 140 mmol/L (137-145); Total Protein 7.6 g/dL (6.3-8.2)
[2019-09-25 17:59] LABS: Troponin I < 0.012 ng/mL (0.01-0.034)
[2019-09-25 18:00] VITALS: BP 115/70; PULSE 92; RESP 20; O2SAT 95
--- NOTE | 2019-09-25 18:09 | ED.ARRPALP ---
HPI - Arrhythmia/Palpitations General Chief Complaint: Arrhythmia/Palpitations Stated Complaint: HEART RATE 120 AND 250 Time Seen by Provider: 09/25/19 18:02 Source: patient Mode of arrival: Ambulatory Limitations: no limitations History of Present Illness HPI narrative: 39-year-old male came to the emergency department for evaluation of a high heart rate. Patient states that he had a routine scheduled appointment today to have some lipomas removed. During the preoperative evaluation patient states that it was discovered that his heart rate was as high as 250. During this time he states he was having no symptoms. He stated that this heart rate of 250 was on a device that he had on his finger and also with him feeling his pulse. He stated that they gave him some time to calm down. They came back and re-evaluated him and he stated that they told him his heart rate was 130-150. Again he was having no symptoms. Has never had anything like this in the past. Related Data Home Medications Medication Instructions Recorded Confirmed allopurinol 300 mg PO QPM 09/25/19 09/25/19 bupropion HCl 300 mg PO QAM 09/25/19 09/25/19 hydrochlorothiazide 12.5 mg PO DAILY 09/25/19 09/25/19 methylphenidate HCl [Ritalin LA] 10 mg PO DAILY 09/25/19 09/25/19 omeprazole 20 mg PO DAILY 09/25/19 09/25/19 potassium citrate 1 tab PO DAILY 09/25/19 09/25/19 prazosin 1 mg PO BEDTIME 09/25/19 09/25/19 trazodone 100 mg PO BEDTIME 09/25/19 09/25/19 Allergies Allergy/AdvReac Type Severity Reaction Status Date / Time No Known Drug Allergies Allergy Verified 12/19/18 11:29 Review of Systems Constitutional Constitutional: Denies fever(s) and Denies headache(s) ENT Ears, Nose, Mouth, and Throat: Denies headache(s) Cardiovascular Cardiovascular: Denies chest pain, Denies diaphoresis, Denies syncope, Denies rapid heart rate, Denies lightheadedness, Denies palpitations and Denies dyspnea Respiratory Respiratory: Denies cough and Denies dyspnea Gastrointestinal Gastrointestinal: Denies diarrhea and Denies vomiting Genitourinary Genitourinary: Denies dysuria Musculoskeletal Musculoskeletal: Denies myalgias and Denies arthralgias Integumentary/Breasts Skin/Breast: Denies lesions and Denies rash Neurologic Neurologic: Denies behavioral changes, Denies syncope and Denies headache(s) Psychiatric Psychiatric: Denies behavioral changes Endocrine Endocrine: Denies palpitations Hematologic/Lymphatic Hematologic/Lymphatic: Denies easy bleeding and Denies easy bruising Patient History Medical History ADD (attention deficit disorder) (Acute) GERD (gastroesophageal reflux disease) (Acute) Kidney stones (Acute) Knee pain (Acute) NGA (obstructive sleep apnea) (Acute) PTSD (post-traumatic stress disorder) (Acute) Social History Smoking Status: Never smoker Smoking Status: Never smoker alcohol intake frequency: holidays/special occasions only Substance Use Type: does not use Exam Initial Vital Signs Initial Vital Signs: Vital Signs Pulse Rate 98 H 09/25/19 16:31 Respiratory Rate 20 09/25/19 16:31 Blood Pressure 124/77 09/25/19 16:31 Pulse Oximetry 98 09/25/19 16:31 Const General: cooperative, comfortable, well developed and well groomed Limitations: mental status not altered HENMT Head: normal to inspection and normocephalic Resp Effort & Inspection: normal respiratory effort Auscultation: clear to auscultation bilaterally Cardio Rate: regular rate Rhythm: regular rhythm GI Inspection: non-distended Palpation: soft Skin Lesions: no lesions Rashes: no rashes Neuro General: alert and awake Cognition: normal cognition Speech: speech normal Extrem General: normal to inspection and capillary refill normal Psych Appearance: grossly normal and well kempt Course Orders Ordered: ED Orders 09/25/19 16:36 Chest [XR chest 2V] Stat EKG-12 Lead Stat 09/25/19 17:05 Complete Blood Count AUTO DIFF Stat Comprehensive Metabolic Panel Stat Lipase Stat Magnesium Stat Troponin I Stat Discontinued Medications Sodium Chloride (Normal Saline 0.9%) 1,000 mls @ 1,000 mls/hr IV BOLUS ONE Stop: 09/25/19 18:05 Last Infusion: 09/25/19 18:33 Dose: 0 mls/hr Documented by: KAILEYSENTay Admin: 09/25/19 17:22 Dose: 1,000 mls/hr Documented by: MEISENB Vital Signs Vital signs: Vital Signs - 8 hr 09/25/19 17:30 09/25/19 18:00 09/25/19 18:39 Pulse Rate 94 H 92 H Respiratory Rate 14 20 Blood Pressure [Left Arm] 116/72 115/70 116/71 Pulse Oximetry 97 95 MDM - Arrhythmia/Palpitations Lab Data Attestation: I reviewed the patient's lab results. Result diagrams: 09/25/19 17:05 09/25/19 17:05 Labs: Lab Results 09/25/19 09/25/19 09/25/19 Range/Units 17:05 17:05 17:05 WBC 8.7 (4.5-11.0) X10^3/uL RBC 5.10 (4.5-5.9) X10^6/uL Hgb 15.1 (13.5-17.5) g/dL Hct 44.1 (41-53) % MCV 86.5 (80-100) fL MCH 29.6 (26-34) PG MCHC 34.2 (30-36) % RDW 13.4 (11.6-14.8) % Plt Count 313 (150-400) X10^3/uL Neut % (Auto) 61.4 (50-75) % Lymph % (Auto) 25.5 (25-40) % [place] % (Auto) 7.1 (3-14) % Eos % (Auto) 5.3 H (2-4) % Baso % (Auto) 0.7 (0-2) % Neut # (Auto) 5400 (6441-1886) /uL Lymph # (Auto) 2200 (8367-4573) /uL [place] # (Auto) 600 (0-900) /uL Eos # (Auto) 500 H (0-450) /uL Baso # (Auto) 100 (0-100) /uL Sodium 140 (137-145) mmol/L Potassium 4.0 (3.4-5.1) mmol/L Chloride 102 (98-107) mmol/L Carbon Dioxide 31 (22-32) mmol/L BUN 8 L (9-20) mg/dL Creatinine 1.10 (0.66-1.25) mg/dL Estimated GFR > 60.0 (>60) mL/min BUN/Creatinine Ratio 7.3 (6-22) Glucose 108 H (70-100) mg/dL Calcium 9.3 (8.4-10.2) mg/dL Magnesium 2.2 (1.6-2.3) mg/dL Total Bilirubin 0.4 (0.2-1.3) mg/dL AST 24 (17-59) IU/L ALT 15 (<50) IU/L Alkaline Phosphatase 63 (38-126) U/L Troponin I < 0.012 (0.01-0.034) ng/mL Total Protein 7.6 (6.3-8.2) g/dL Albumin 4.4 (3.5-5.0) g/dL Globulin 3.2 (1.7-4.1) g/dL Albumin/Globulin Ratio 1.4 (1.0-2.8) Lipase 57 (23-300) U/L Imaging Data Chest x-ray: Radiologist's Impresson: [address] [address] XRay Report Signed Patient: Yusuf Martinez Jr [facility]#: [id number] : 1980Acct:[id number] Age/Sex: 39 / MDate of Service: 09/25/19 Loc: ED Accession Number: [id number] Procedure: XR chest 2V Ordering Provider: Lima Chaudhari D.O. PROCEDURE: XR CHEST 2V INDICATIONS: irreg heart beat TECHNIQUE: 2 views of the chest were acquired. COMPARISON: None. FINDINGS: Surgical changes and devices: None. Lungs and pleura: Lungs are clear. No pleural effusions or pneumothorax. Mediastinum: Mediastinal contours are normal. Heart size is normal. Bones and chest wall: No suspicious bony abnormalities. Soft tissues appear unremarkable. IMPRESSION: Normal for age, source of current cardiac arrhythmia symptoms is not seen. Dictated by: Moustapha Lee M.D. on 09/25/2019 at 17:16 Approved by: Moustapha Lee M.D. on 09/25/2019 at 17:17 ECG Data Attestation: I personally reviewed and interpreted this ECG as follows: Prior ECG tracings: not available for review Interpretation: Sinus rhythm Ventricular rate of 90 Normal axis Normal QRS Normal QTC No ST T wave changes MDM Narrative Medical decision making narrative: Patient stated that he was asymptomatic when he was being evaluated at the preop visit. He was asymptomatic here in the ER. He was sinus rhythm on his EKG. Rest of his workup was unremarkable. Informed patient that he did need to talk with his primary doctor about the indications for a Holter monitor. He was given return precautions and follow-up instructions. He expressed understanding and agreement plan. Discharge Plan Departure Patient Disposition: Home Clinical Impression: Normal cardiac exam Discharge Date/Time: 09/25/19 18:47 Instructions: Arrhythmias Activity Restrictions/Additional Instructions: Continue all of your medications as directed. Recommend that you contact your primary provider to discuss the indications for a Holter monitor. Return to the emergency department for any new or worsening symptoms [employer] Prescriptions: No Action prazosin 1 mg Capsule 1 mg PO BEDTIME RF: 0 trazodone 100 mg Tablet 100 mg PO BEDTIME RF: 0 allopurinol 300 mg Tablet 300 mg PO QPM RF: 0 bupropion HCl 300 mg Tablet Extended Release 24 Hr 300 mg PO QAM RF: 0 methylphenidate HCl [Ritalin LA] 10 mg Capsule,Er Biphasic 50-50 10 mg PO DAILY RF: 0 hydrochlorothiazide 12.5 mg Tablet 12.5 mg PO DAILY RF: 0 omeprazole 20 mg Tablet,Delayed Release (Dr/Ec) 20 mg PO DAILY RF: 0 potassium citrate 1 tab PO DAILY RF: 0
[2019-09-25 18:39] VITALS: BP 116/71
== END 2019-09-25 18:47 | disposition home or self-care (01) ==
PROVIDERS: Emergency Medicine; Emergency Provider Emergency Medicine
DX: I49.8 Other specified cardiac arrhythmias (principal)
CPT/HCPCS: 36415; 71046; 80053; 83690; 83735; 84484; 85025; 93005; 96360; 99284; 99285

== ENCOUNTER 2019-11-14 16:40 | Emergency (ER) | payer OTHER, SELFPAY ==
[2019-11-14 16:40] VITALS: BP 138/64; PULSE 110; RESP 16; TEMP 36.5; O2SAT 99
--- NOTE | 2019-11-14 17:30 | DI.CT.S_ITS ---
PROCEDURE: CT HEAD/BRAIN WO CON INDICATIONS: fall + loc, blurry vision TECHNIQUE: Noncontrast 4.5 mm thick angled axial sections acquired from the foramen magnum to the vertex, with coronal and sagittal reformats. For radiation dose reduction, the following was used: automated exposure control, adjustment of mA and/or kV according to patient size. COMPARISON: None. FINDINGS: Image quality: Excellent. CSF spaces: Basal cisterns are patent. No extra-axial fluid collections. Ventricles are normal in size and shape. Brain: No intracranial hemorrhage, mass, or mass effect. Aviles-white matter interface is preserved. Skull and face: Calvarium and visualized facial bones are intact, without suspicious lesions. Sinuses: Visualized sinuses demonstrate mild mucosal thickening within the ethmoid sinuses. Mastoid air cells are clear. IMPRESSION: 1. No acute intracranial abnormality. Dictated by: Billy West M.D. on 11/14/2019 at 17:54 Approved by: Billy West M.D. on 11/14/2019 at 17:55
[2019-11-14 19:00] VITALS: BP 122/74; PULSE 90; RESP 18; TEMP 36.8; O2SAT 98
--- NOTE | 2019-11-14 19:15 | PC.NURSE ---
pt c/o headache pain.
--- NOTE | 2019-11-14 19:21 | ED_ITS ---
HPI - Head Injury <ZUNILDA SappBC - Last Filed: 11/14/19 19:29> General Chief complaint: Head Injury Stated complaint: fall yesterday, hit head,blurry vision today Time Seen by Provider: 11/14/19 17:15 Source: patient Mode of arrival: Ambulatory Limitations: no limitations History of Present Illness HPI Narrative: The patient is a 39-year-old male nonsmoker with history of right leg and calf pain who presents with a chief complaint of blurry vision after hitting his head yesterday. He states that he has a history of passing out when he is laughing very hard any did this yesterday. He states he hit his head, and since felt dizzy lightheaded, has had blurry vision coming and going. He is concerned about head injury. He called his primary care provider who referred him to the emergency department. He denies any neck pain or back pain. Again he states that passing out while coughing has been going on for several months and this is not new. He is more concerned about his visual deficit. Related Data Home Medications Medication Instructions Recorded Confirmed allopurinol 300 mg PO QPM 09/25/19 09/25/19 bupropion HCl 300 mg PO QAM 09/25/19 09/25/19 hydrochlorothiazide 12.5 mg PO DAILY 09/25/19 09/25/19 methylphenidate HCl [Ritalin LA] 10 mg PO DAILY 09/25/19 09/25/19 omeprazole 20 mg PO DAILY 09/25/19 09/25/19 potassium citrate 1 tab PO DAILY 09/25/19 09/25/19 prazosin 1 mg PO BEDTIME 09/25/19 09/25/19 trazodone 100 mg PO BEDTIME 09/25/19 09/25/19 Allergies Allergy/AdvReac Type Severity Reaction Status Date / Time No Known Drug Allergies Allergy Verified 12/19/18 11:29 Review of Systems <GARO Sapp - Last Filed: 11/14/19 19:29> Review of Systems Narrative: GENERAL: Denies chills, fatigue, malaise, fever, sweats. HEENT: Denies sinus pain, ear pain, sore throat, difficulty swallowing, dizziness. RESPIRATORY: Denies dyspnea, cough, wheezing, hemoptysis, sputum. CARDIOVASCULAR: Denies chest pain, palpitations, orthopnea, edema, GASTROINTESTINAL: Denies nausea, vomiting, abdominal pain, diarrhea, constipation, melena. : Denies dysuria, frequency, incontinence, hematuria, urinary retention. MUSCULOSKELETAL: denies weakness, joint pain, or bony pain SKIN: Denies rash, skin lesions, or other NEUROLOGIC: See HPI PSYCHIATRIC: No concerning psychosocial issues. 12 point review of systems is negative except for those stated above Patient History <Lima GARO Patterson - Last Filed: 11/14/19 19:29> Social History Smoking Status: Never smoker Smoking Status: Never smoker alcohol intake frequency: holidays/special occasions only Substance Use Type: does not use Exam <Lima GARO Patterson - Last Filed: 11/14/19 19:29> Narrative Exam Narrative: GENERAL: This is a well-nourished, well-developed patient, in no acute distress HEAD: Atraumatic. Normocephalic. No temporal or scalp tenderness. EYES: Pupils equal round and reactive. Extraocular motions intact. No scleral icterus. No injection or drainage. ENT: Nose without bleeding, purulent drainage or septal hematoma. Throat without erythema, tonsillar hypertrophy or exudate. Uvula midline. Airway patent. NECK: Trachea midline. No JVD or lymphadenopathy. Supple, nontender, no meningeal signs. CARDIOVASCULAR: Regular rate and rhythm RESPIRATORY: Clear to auscultation. Breath sounds equal bilaterally. No wheezes, rales, or rhonchi. GASTROINTESTINAL: Abdomen soft, non-tender, nondistended. No hepato- splenomegaly, or palpable masses. No guarding. EXTREMITIES: No clubbing, cyanosis, or edema. No joint tenderness, effusion, or edema noted. BACK: Nontender without deformity or crepitance. No flank tenderness. No pain to CT or L-spine palpation. NEURO: AOx3. Stable gait. Clear speech. Following commands. SKIN: No rash or erythema on visible skin Initial Vital Signs Initial Vital Signs: Vital Signs Temperature 97.7 F 11/14/19 16:40 Pulse Rate 110 H 11/14/19 16:40 Respiratory Rate 16 11/14/19 16:40 Blood Pressure 138/64 11/14/19 16:40 Pulse Oximetry 99 11/14/19 16:40 <Naveed Ledezma DO - Last Filed: 11/20/19 18:04> Initial Vital Signs Initial Vital Signs: Vital Signs Temperature 97.7 F 11/14/19 16:40 Pulse Rate 110 H 11/14/19 16:40 Respiratory Rate 16 11/14/19 16:40 Blood Pressure 138/64 11/14/19 16:40 Pulse Oximetry 99 11/14/19 16:40 Scores <GARO Sapp - Last Filed: 11/14/19 19:29> GCS Erlin coma scale eye opening: Spontaneous [place] coma scale verbal response: Orientated [place] coma scale motor response: Obey commands [place] coma scale total score: 15 Nexus Score for C-Spine Focal Neurologic deficit present: No Midline spinal tenderness present: No Altered level of conciousness present: No Intoxication present: No Distracting Injury Present: No Nexus Criteria for C-spine: 0 Course <GARO Sapp - Last Filed: 11/14/19 19:29> Orders Ordered: ED Orders 11/14/19 17:30 CT head/brain wo con Stat Vital Signs Vital signs: Vital Signs - 8 hr 11/14/19 16:40 11/14/19 19:00 Temperature 97.7 F 98.3 F Pulse Rate 110 H 90 Respiratory Rate 16 18 Blood Pressure 138/64 Blood Pressure [Left Arm] 122/74 Pulse Oximetry 99 98 <Naveed Ledezma DO - Last Filed: 11/20/19 18:04> Orders Ordered: ED Orders 11/14/19 17:30 CT head/brain wo con Stat Vital Signs Vital signs: Vital Signs - 8 hr 11/14/19 16:40 11/14/19 19:00 Temperature 97.7 F 98.3 F Pulse Rate 110 H 90 Respiratory Rate 16 18 Blood Pressure 138/64 Blood Pressure [Left Arm] 122/74 Pulse Oximetry 99 98 MDM - Head Injury <GARO Sapp - Last Filed: 11/14/19 19:29> Imaging Data CT scan - head: Radiologist's Impression: [address] [address] [address] Scan Report Signed Patient: Yusuf Martinez Jr [facility]#: [id number] : 1980Acct:[id number] Age/Sex: 39 / MDate of Service: 11/14/19 Loc: ED Accession Number: [id number] Procedure: CT head/brain wo con Ordering Provider: Lima Patterson PROCEDURE: CT HEAD/BRAIN WO CON INDICATIONS: fall + loc, blurry vision TECHNIQUE: Noncontrast 4.5 mm thick angled axial sections acquired from the foramen magnum to the vertex, with coronal and sagittal reformats. For radiation dose reduction, the following was used: automated exposure control, adjustment of mA and/or kV according to patient size. COMPARISON: None. FINDINGS: Image quality: Excellent. CSF spaces: Basal cisterns are patent. No extra-axial fluid collections. Ventricles are normal in size and shape. Brain: No intracranial hemorrhage, mass, or mass effect. Aviles-white matter interface is preserved. Skull and face: Calvarium and visualized facial bones are intact, without suspicious lesions. Sinuses: Visualized sinuses demonstrate mild mucosal thickening within the ethmoid sinuses. Mastoid air cells are clear. IMPRESSION: 1. No acute intracranial abnormality. Dictated by: Billy West M.D. on 11/14/2019 at 17:54 Approved by: Billy West M.D. on 11/14/2019 at 17:55 MDM Narrative Medical decision making narrative: The patient is a 39-year-old male who presents with blurry vision, dizziness and lightheadedness after hitting his head when he passed out while laughing yesterday. Head CT has no acute intracranial abnormality. Neurological exam is grossly normal. Visual acuities within normal limits. Patient feels much improved. I discussed at length that he has a concussion given his symptoms. Encourage brain rest. Encourage PCP follow-up. Discussed at length coming back to the emergency department for any acute concerns. Patient has no questions or concerns upon discharge and states understanding return precautions as well as follow-up care. Discharge Plan Departure Patient Disposition: Home Clinical Impression: Concussion with loss of consciousness Qualifiers: Encounter type: initial encounter Qualified Code(s): S06.0X9A - Concussion with loss of consciousness of unspecified duration, initial encounter Discharge Date/Time: 11/14/19 19:15 Instructions: DI for Concussion, DI for Closed Head Injury Activity Restrictions/Additional Instructions: Thank you for trusting us with your care today As I discussed, your head CT shows no acute findings. Given your clinical symptoms, I believe that you have a concussion Please rest your brain. Use [id number] medications as needed and able. Please follow-up with primary care provider in the next few days. Please come back to emergency department for any acute concerns Prescriptions: No Action prazosin 1 mg Capsule 1 mg PO BEDTIME RF: 0 trazodone 100 mg Tablet 100 mg PO BEDTIME RF: 0 allopurinol 300 mg Tablet 300 mg PO QPM RF: 0 bupropion HCl 300 mg Tablet Extended Release 24 Hr 300 mg PO QAM RF: 0 methylphenidate HCl [Ritalin LA] 10 mg Capsule,Er Biphasic 50-50 10 mg PO DAILY RF: 0 hydrochlorothiazide 12.5 mg Tablet 12.5 mg PO DAILY RF: 0 omeprazole 20 mg Tablet,Delayed Release (Dr/Ec) 20 mg PO DAILY RF: 0 potassium citrate 1 tab PO DAILY RF: 0 Referrals: [facility] [Provider Group] <Naveed Ledezma, DO - Last Filed: 11/20/19 18:04> Cosign [facility] Attestation: Dr Ledezma Co-Sign Statement: I was available for consultation during this patient's emergency department visit. This chart is signed by myself for administrative purposes only. I did not have direct contact with this patient during this visit. They were seen independently by the [facility].
== END 2019-11-14 19:15 | disposition home or self-care (01) ==
PROVIDERS: Emergency Provider Nurse Practitioner Family
DX: S06.0X9A Concussion with loss of consciousness of unspecified duration, initial encounter (principal); W19.XXXA Unspecified fall, initial encounter
CPT/HCPCS: 70450; 99282; 99284

== ENCOUNTER → 2019-11-28 17:07 | Outpatient (CLI) | payer OTHER, SELFPAY ==
--- NOTE | 2019-11-28 17:09 | DI.MRI.S_ITS ---
PROCEDURE: MR LUMBAR SPINE WO CON INDICATIONS: LOW BACK PAIN. BILATERAL LEG RADICULAR PAIN TECHNIQUE: Noncontrast sagittal T1 spin echo and T2 fast echo, sagittal STIR, axial T1 and T2 fast spin echo through the lumbar spine. In cases with scoliosis, additional coronal T2 fast spin echo may be performed. COMPARISON: [facility], MR, MR LUMBAR SPINE WO CON, 06/07/2019, 16:57. FINDINGS: Image quality: Excellent. Alignment and Curvature: There is minimal retrolisthesis seen at the L5-S1 level. Bone Marrow: Marrow is of normal overall signal. No acute vertebral body compression fractures. Spinal Cord: Conus medullaris terminates at the L1 level. Visualized cord demonstrates normal signal and size. Paraspinous Soft Tissues: No paravertebral masses. T12-L1: Normal appearance. L1-L2: Normal appearance. L2-L3: Normal appearance. L3-L4: The disc height and disk signal are well-preserved. Mild to moderate disc bulge is seen. There is moderate left-sided and minimal right-sided neural foraminal narrowing seen. No significant central canal narrowing seen. When comparison is made with the prior examination, these findings are similar. L4-L5: The disc height and disk signal are well-preserved. Mild to moderate disc bulge is seen. [id number] facet hypertrophy is seen. [id number] bilateral neural foraminal narrowing is seen at this level. No significant central canal narrowing is seen. When compared to the prior images, no significant changes can be seen. L5-S1: Moderate loss of disc height is seen. Loss of disc signal is seen. [id number] disc bulge is seen, with a superimposed central/right disc extrusion, with inferior migration of disc material. Regional mass effect can be seen, which is most prominent upon the transiting right S1 nerve root. At least moderate bilateral neural foraminal narrowing can be seen. Overall mild central canal narrowing is seen. IMPRESSION: Central/right disc extrusion at the L5-S1 level, which is similar to the prior examination. Regional mass effect is again seen, which is most prominent upon the transiting right S1 nerve root. At least moderate bilateral neural foraminal narrowing is seen at L5-S1. Milder lower lumbar spine degenerative changes are also seen, which are similar to the prior images. Dictated by: Panchito Lakhani M.D. on 11/28/2019 at 16:59 Approved by: Panchito Lakhani M.D. on 11/28/2019 at 17:03
== END ==
PROVIDERS: Referring Provider Physical Medicine & Rehabilitation; Visit Provider Physical Medicine & Rehabilitation
DX: M51.17 Intervertebral disc disorders with radiculopathy, lumbosacral region (principal); M47.26 Other spondylosis with radiculopathy, lumbar region; M48.07 Spinal stenosis, lumbosacral region
CPT/HCPCS: 72148